=== PATIENT | female | born 1965 | race Caucasian/White ===

== ENCOUNTER 2017-05-01 17:47 | Emergency (ER) | payer MEDICAID ==
[2017-05-01] MEDS: IBUPROFEN 600 MG TAB PO (23:11)
[2017-05-01] MEDS: OXYCODONE/ACETAMINOPHEN (5/325) TAB PO (23:11)
== END 2017-05-02 01:33 | disposition home or self-care (01) ==
LOC: E/R 17:47
DX: G40.909 Epilepsy, unspecified, not intractable, without status epilepticus (principal); S73.101A Unspecified sprain of right hip, initial encounter; X58.XXXA Exposure to other specified factors, initial encounter; Y92.9 Unspecified place or not applicable
CPT/HCPCS: 72170; 73510; 99284-25